=== PATIENT | male | born 1975 | race Hispanic/Latino ===

== ENCOUNTER 2018-11-24 21:49 | Emergency (ER) | payer SELFPAY ==
[2018-11-24 23:36] LABS: Basophils # (Auto) 0.1 K/mm3 (0.0-0.1); Basophils % (Auto) 0.9 % (0.0-1.8); Eosinophils # (Auto) 0.3 K/mm3 (0.0-0.4); Eosinophils % (Auto) 2.3 % (0.0-4.3); Hematocrit 46.3 % (35.5-45.6); Hemoglobin 15.8 gm/dl (11.8-15.2); Lymphocytes # (Auto) 3.3 K/mm3 (1.2-5.4); Lymphocytes % (Auto) 27.1 % (13.4-35.0); Mean Corpuscular HGB Conc 34 % (32-34); Mean Corpuscular Volume 85 fl (84-94); Monocytes # (Auto) 1.9 K/mm3 (0.0-0.8); Monocytes % (Auto) 15.7 % (0.0-7.3); Platelet Count 357 K/mm3 (140-440); Red Blood Count 5.47 M/mm3 (3.65-5.03); Red Cell Distribution Width 14.3 % (13.2-15.2)
--- NOTE | 2018-11-24 23:38 | Emergency Department Report ---
ED Male HPI - General Chief complaint: Dizziness Stated complaint: WEAKNESS DIZZINES ORANGE URINE Time Seen by Provider: 11/24/18 23:34 Source: patient Mode of arrival: Ambulatory Limitations: No Limitations - History of Present Illness Initial comments: Mr. Ramirez is a 43 yo male with hx of IDDM, CVA, DVT, DM, HTN, depression who presents with hematuria and generalized weakness. No abdominal pain. No fever. No vomiting. He does not have insurance. He does not have most of his home medications. He is taking Eliquis. -: Gradual, days(s) (2) Severity: mild Consistency: constant Worsens with: urination - Related Data Home Medications Medication Instructions Recorded Confirmed Last Taken Baclofen 10 mg PO TID 11/24/18 11/24/18 11/24/18 Eliquis 5 mg PO BID 11/24/18 11/24/18 11/24/18 Previous Rx's Medication Instructions Recorded Last Taken Type cephALEXin [Keflex] 500 mg PO Q6HR 7 Days #28 capsule 11/25/18 Unknown Rx Allergies Allergy/AdvReac Type Severity Reaction Status Date / Time No Known Allergies Allergy Unverified 11/24/18 23:02 ED Review of Systems ROS: Stated complaint: WEAKNESS DIZZINES ORANGE URINE Other details as noted in HPI Comment: All other systems reviewed and negative Constitutional: denies: fever, malaise Respiratory: denies: cough Cardiovascular: denies: chest pain ED Past Medical Hx - Past Medical History Previous Medical History?: Yes Hx Hypertension: Yes Hx CVA: Yes Hx Diabetes: Yes Hx Psychiatric Treatment: Yes (Depression) Additional medical history: DVT, EF 35%, Cardiac Valve Disease, CHRONIC PAIN - Surgical History Past Surgical History?: Yes Additional Surgical History: Blood Clot in Groin, Abdominal Hernia surgery - Social History Smoking Status: Current Every Day Smoker Substance Use Type: None - Medications Home Medications: Home Medications Medication Instructions Recorded Confirmed Last Taken Type Baclofen 10 mg PO TID 11/24/18 11/24/18 11/24/18 History Eliquis 5 mg PO BID 11/24/18 11/24/18 11/24/18 History cephALEXin [Keflex] 500 mg PO Q6HR 7 Days #28 capsule 11/25/18 Unknown Rx ED Physical Exam - General Limitations: No Limitations General appearance: alert, in no apparent distress - Head Head exam: Present: atraumatic, normocephalic - Eye Eye exam: Present: normal appearance - ENT ENT exam: Present: mucous membranes moist - Neck Neck exam: Present: normal inspection, full ROM - Respiratory Respiratory exam: Present: normal lung sounds bilaterally. Absent: respiratory distress, wheezes, rales, rhonchi - Cardiovascular Cardiovascular Exam: Present: regular rate, normal rhythm, normal heart sounds. Absent: systolic murmur, diastolic murmur, rubs, gallop - GI/Abdominal GI/Abdominal exam: Present: soft, normal bowel sounds. Absent: distended, tenderness, guarding, rebound - Rectal Rectal exam: Present: deferred - Extremities Exam Extremities exam: Present: normal inspection - Back Exam Back exam: Present: normal inspection - Neurological Exam Neurological exam: Present: alert, oriented X3 - Psychiatric Psychiatric exam: Present: normal affect, normal mood - Skin Skin exam: Present: warm, dry, intact, normal color. Absent: rash ED Course Vital Signs 11/24/18 11/24/18 11/24/18 22:25 22:56 23:34 Temperature 98.3 F 98.3 F Pulse Rate 104 H 101 H 94 H Respiratory 20 18 22 Rate Blood Pressure 131/95 131/95 O2 Sat by Pulse 95 100 95 Oximetry 11/24/18 23:45 Temperature Pulse Rate 89 Respiratory 25 H Rate Blood Pressure 129/70 O2 Sat by Pulse 96 Oximetry ED Medical Decision Making - Lab Data Result diagrams: 11/24/18 23:21 11/24/18 23:21 - Radiology Data Radiology results: report reviewed No acute process on CT abdomen and pelvis - Medical Decision Making Mr. Hummel presents with hematuria. CT abdomen and pelvis without evidence of abnormality. Prescribed cephalexin for possible UTI. Referred to outside clinic Critical care attestation.: If time is entered above; I have spent that time in minutes in the direct care of this critically ill patient, excluding procedure time. ED Disposition Clinical Impression: Hematuria Disposition: - TO HOME OR SELFCARE Is pt being admited?: No Does the pt Need Aspirin: No Condition: Stable Instructions: Acute Hematuria (ED) Prescriptions: cephALEXin [Keflex] 500 mg PO Q6HR 7 Days #28 capsule Referrals: [facility] [Outside] - 3-5 Days
[2018-11-24] MEDS ORDERED: NORCO 5/325 PO ONE (23:40)
[2018-11-24 23:48] LABS: INR 1.04 (0.87-1.13)
[2018-11-24 23:54] LABS: Alanine Aminotransferase 43 units/L (7-56); Albumin 3.7 g/dL (3.9-5); BUN/Creatinine Ratio 24; Blood Urea Nitrogen 24 mg/dL (9-20); Calcium 9.7 mg/dL (8.4-10.2); Hemolysis Index 10
--- NOTE | 2018-11-25 00:40 | Cat Scan Report ---
PROCEDURE: CT ABDOMEN PELVIS WO CON TECHNIQUE: Axial images were acquired from the lung bases through the ischial tuberosities without co ntrast. Coronal and sagittal reconstructed images were acquired. Absent IV contrast precludes adequate evaluation of viscera and vessels, including lymph nodes. HISTORY: Hematuria. COMPARISONS: None available. FINDINGS: Lower Thorax: Lungs: Bibasilar atelectasis without focal consolidation or pleural effusion. No pneumothorax. Atherosclerosis: Mild atherosclerotic changes in the aorta and coronary arteries. Pericardial effusion: No pericardial effusion. Abdomen: Liver: No calcification or adjacent inflammatory change. Gallbladder: Distended with bile, no adjacent inflammatory change. Pancreas: No focal abnormality or adjacent inflammatory change. Adrenals: Usual non-contrast appearance. Spleen: Usual non-contrast appearance. Kidneys: No discrete cortical lesion noted. No hydronephrosis. Pelvis: Ureters: Not dilated. Bowel: Non-obstructive pattern. Normal appendix. Peritoneum: No large volume free intraperitoneal fluid or air noted. Vessels: Mild atherosclerotic changes or the aorta and its branch vessels. Bladder: Distended with urine. Bones: No acute osseous abnormality. Multilevel vertebral endplate degenerative changes most prominen t in the mid thoracic spine. Paraspinal fat planes appear preserved. Miscellaneous: None. Impression: 1. No renal or ureteral calculi. No hydronephrosis. 2. Normal appearance of the appendix. No acute intra-abdominal inflammatory process. This document is electronically signed by Nick Randolph DO., November 25 2018 12:38:26 AM ET
[2018-11-25] MEDS ORDERED: KEFLEX PO ONE (00:57)
[2018-11-25 01:37] VITALS: BP 116/77
== END 2018-11-25 01:36 | disposition home or self-care (01) ==
LOC: ED 21:49
DX: R31.9 Hematuria, unspecified (principal); I10 Essential (primary) hypertension; E11.9 Type 2 diabetes mellitus without complications; F17.200 Nicotine dependence, unspecified, uncomplicated; Z86.718 Personal history of other venous thrombosis and embolism
CPT/HCPCS: 36415; 74176; 80053; 85025; 85610; 93005; 93010; 99284

== ENCOUNTER 2019-02-06 01:51 | Observation (INO) | payer OTHER ==
[2019-02-06] MEDS ORDERED: PERCOCET 5/325 PO ONE (03:08)
[2019-02-06 04:14] LABS: Basophils # (Auto) 0.1 K/mm3 (0.0-0.1); Basophils % (Auto) 0.5 % (0.0-1.8); Eosinophils # (Auto) 0.3 K/mm3 (0.0-0.4); Eosinophils % (Auto) 2.7 % (0.0-4.3); Hematocrit 45.6 % (35.5-45.6); Hemoglobin 15.1 gm/dl (11.8-15.2); Lymphocytes # (Auto) 2.7 K/mm3 (1.2-5.4); Lymphocytes % (Auto) 23.5 % (13.4-35.0); Mean Corpuscular HGB Conc 33 % (32-34); Mean Corpuscular Volume 84 fl (84-94); Monocytes # (Auto) 1.6 K/mm3 (0.0-0.8); Monocytes % (Auto) 13.8 % (0.0-7.3); Platelet Count 302 K/mm3 (140-440); Red Blood Count 5.41 M/mm3 (3.65-5.03); Red Cell Distribution Width 13.9 % (13.2-15.2)
--- NOTE | 2019-02-06 04:14 | XRay Report ---
RIGHT FOOT 3 VIEWS. INDICATION / CLINICAL INFORMATION: bilateral foot pain COMPARISON: None available. FINDINGS: BONES / JOINT(S): No acute fracture or subluxation. Underlying osteopenia. Negative for significant a rthritis. A large calcaneal spur. SOFT TISSUES: Mild soft tissue swelling. ADDITIONAL FINDINGS: None. LEFT FOOT 3 VIEWS. INDICATION / CLINICAL INFORMATION: bilateral foot pain COMPARISON: None available. FINDINGS: BONES / JOINT(S): No acute fracture or subluxation. Underlying osteopenia. Large calcaneal spur. SOFT TISSUES: Mild soft tissue swelling. ADDITIONAL FINDINGS: None. Signer Name: Joe Guevara MD Signed: 02/06/2019 4:09 AM Workstation Name: [id number]
[2019-02-06 04:30] LABS: Alanine Aminotransferase 17 units/L (7-56); Albumin 3.8 g/dL (3.9-5); BUN/Creatinine Ratio 23; Blood Urea Nitrogen 18 mg/dL (9-20); Calcium 9.2 mg/dL (8.4-10.2); Hemolysis Index 3
[2019-02-06 04:43] LABS: Uric Acid 5.4 mg/dL (3.5-7.6)
--- NOTE | 2019-02-06 04:49 | Cat Scan Report ---
CT head/brain wo con INDICATION: Generalized weakness. TECHNIQUE: All CT scans at this location are performed using the following dose modulation technique: Automated exposure control. CONTRAST: Contrast COMPARISON: None available. FINDINGS: The ventricular system is appropriate in size and configuration without midline shift. Nega tive for mass, stroke or hemorrhage. Evaluation of the paranasal sinuses demonstrate a mucous retenti on cyst at the right maxillary sinus. IMPRESSION: 1. Negative for acute abnormality. 2. Mucous retention cyst right maxillary sinus. Signer Name: Joe Guevara MD Signed: 02/06/2019 4:45 AM Workstation Name: [id number]
--- NOTE | 2019-02-06 05:54 | Emergency Department Report ---
HPI - General Chief Complaint: Extremity Injury, Lower Time Seen by Provider: 02/06/19 02:54 - HPI HPI: 43-year-old male presents to the emergency department with the complaints of bilateral foot and leg pains, weakness that has caused the patient to fall and have difficulty with ambulation. The patient had a CVA about 6 months ago that left him with some right-sided weakness and he ambulates with a walker. He has a past medical history, as well, of insulin-dependent diabetes, hypertension, previous DVT on anticoagulation, cardiomyopathy. The patient says that he is compliant with his Eliquis but otherwise does not fill all of his med ications, such as his cholesterol medication, secondary to financial issues. The patient says that he is only able to take a few steps before he gets very weak and this caused him to have a fall prior to presentation in which he fell through a baby gate. He denies hitting his head or any loss of consciousness. ED Past Medical Hx - Past Medical History Previous Medical History?: Yes Hx Hypertension: Yes Hx CVA: Yes (Right hemiparesis) Hx Diabetes: Yes Hx Psychiatric Treatment: Yes (Depression, Anxiety) Additional medical history: DVT, EF 35%, Cardiac Valve Disease, CHRONIC PAIN - Surgical History Past Surgical History?: Yes Additional Surgical History: Blood Clot in Groin, Abdominal Hernia surgery - Social History Smoking Status: Never Smoker Substance Use Type: None - Medications Home Medications: Home Medications Medication Instructions Recorded Confirmed Last Taken Type Baclofen 10 mg PO TID 11/24/18 02/06/19 11/24/18 History Eliquis 5 mg PO BID 11/24/18 02/06/19 11/24/18 History ED Review of Systems ROS: Stated complaint: BOTH FOOT PAIN Other details as noted in HPI Constitutional: weakness. denies: fever Eyes: denies: eye pain, vision change ENT: denies: ear pain, throat pain Respiratory: denies: cough, shortness of breath Cardiovascular: denies: chest pain, palpitations Gastrointestinal: denies: abdominal pain, vomiting Genitourinary: denies: dysuria, discharge Musculoskeletal: arthralgia, myalgia Skin: denies: rash, lesions Neurological: weakness. denies: numbness Physical Exam - Physical Exam Vital Signs: Vital Signs 02/06/19 02/06/19 02:00 02:18 Temperature 97.7 F 97.7 F Pulse Rate 99 H 94 H Respiratory 18 20 Rate Blood Pressure 109/46 109/56 O2 Sat by Pulse 97 97 Oximetry Physical Exam: GENERAL: The patient is well-developed well-nourished. HENT: Normocephalic. Atraumatic. Patient has moist mucous membranes. EYES: Extraocular motions are intact. Pupils equal reactive to light bilaterally. NECK: Supple. Trachea is midline. CHEST/LUNGS: Clear to auscultation. There is no respiratory distress noted. HEART/CARDIOVASCULAR: Regular. There is no tachycardia. There is no murmur. ABDOMEN: Abdomen is soft, nontender. Patient has normal bowel sounds. There is no abdominal distention. SKIN: Skin is warm and dry. NEURO: The patient is awake, alert, and oriented. The patient is cooperative. Right-sided hemiparesis. Normal speech. MUSCULOSKELETAL: Tenderness to palpation to the bilateral feet without obvious deformity. There is no evidence of acute injury. ED Course Vital Signs 02/06/19 02/06/19 02:00 02:18 Temperature 97.7 F 97.7 F Pulse Rate 99 H 94 H Respiratory 18 20 Rate Blood Pressure 109/46 109/56 O2 Sat by Pulse 97 97 Oximetry ED Medical Decision Making - Lab Data Result diagrams: 02/06/19 03:39 02/06/19 03:39 - EKG Data -: EKG Interpreted by Me EKG shows normal: sinus rhythm, axis, intervals, QRS complexes, ST-T waves Rate: normal - EKG Data When compared to previous EKG there are: previous EKG unavailable Interpretation: normal EKG - Radiology Data Radiology results: report reviewed, image reviewed interpreted by me: X-ray of the bilateral feet does not show any fracture, dislocation or any acute process. CT head/brain wo con INDICATION: Generalized weakness. TECHNIQUE: All CT scans at this location are performed using the following dose modulation technique: Automated exposure control. CONTRAST: Contrast COMPARISON: None available. FINDINGS: The ventricular system is appropriate in size and configuration without midline shift. Negative for mass, stroke or hemorrhage. Evaluation of the paranasal sinuses demonstrate a mucous retention cyst at the right maxillary sinus. IMPRESSION: 1. Negative for acute abnormality. 2. Mucous retention cyst right maxillary sinus. - Medical Decision Making This patient presents to the emergency department with the complaint of bilateral foot pain and some bilateral lower extremity weakness that caused him to have a fall. He does have a history of right-sided hemiparesis but says that he walks with a walker and has never had a fall before since having his stroke. Part of his issues may be secondary to his pain that he says radiates up his legs, but there is concern that it is some new onset weakness. CT of the head did not show any acute bleed, shift, mass, ischemia. X-rays of the bilateral feet did not show any fracture, dislocation or any acute process. Labs were mostly unremarkable. Patient does not appear stable on his feet and is c urrently unable to ambulate and therefore will be unable to complete any ADLs. He'll be admitted to the hospital for further evaluation and treatment and was accepted for admission by the hospitalist service. - Differential Diagnosis CVA, TIA, doubt, osteoarthritis, occult fracture Critical Care Time: No Critical care attestation.: If time is entered above; I have spent that time in minutes in the direct care of this critically ill patient, excluding procedure time. ED Disposition Clinical Impression: History of CVA (cerebrovascular accident), Gait difficulty, Bilateral leg pain, Weakness, Fall Disposition: DC-09 OP ADMIT IP TO THIS HOSP Is pt being admited?: Yes Condition: Fair - Assessment Assessment Interval: Baseline - Level of Consciousness 1a. Level of Consciousness: alert/keenly responsive - LOC Questions 1b. LOC Questions: answers both correctly - LOC Command 1c. LOC Commands: performs tasks correctly - Best Gaze 2. Best Gaze: normal - Visual 3. Visual: no visual loss - Facial Palsy 4. Facial Palsy: normal symmetrical movement - Motor Arm 5a. Motor Arm Left: no drift 5b. Motor Arm Right: drift - Motor Leg 6a. Motor Leg Left: drift 6b. Motor Leg Right: some gravity effort - Limb Ataxia 7. Limb Ataxia: absent - Sensory 8. Sensory: normal - Best Language 9. Best Language: no aphasia - Dysarthria 10. Dysarthria: normal - Extinction and Inattention 11. Extinction/Inattention: no abnormality - Scoring Total Score: 4 Stroke Severity: Minor Stroke
--- NOTE | 2019-02-06 10:55 | History and Physical Report ---
History of Present Illness Date of examination: 02/06/19 Date of admission: 02/06/19 06:20 Chief complaint: Bilateral lower extremity pain History of present illness: 43-year-old male with h/o CVA leftsided hameparesis, IDDM, HTN, morbidly obese, h/o DVT presents to the emergency department with the complaints of bilateral foot and leg pains. He states that these symptoms has caused the patient to fall and have difficulty with ambulation. The patient had a CVA about 6 months ago that left him with some right-sided weakness and he ambulates with a walker. The patient says that he is compliant with his Eliquis but otherwise does not fill all of his medications. The patient says that he is only able to take a few steps before he gets very weak and this caused him to have a fall prior to presentation in which he fell through a baby gate. He den ies hitting his head or any loss of consciousness. CY head in the ER showed no acute process, he was called to admit for 23h obsevation. Review of System: Constitutional: no fever, no chills, no weight loss Ears, eyes, nose, mouth and throat: no nasal congestion, no nasal discharge, no sinus pressure, no vision change, no red eye. Neck: No neck pain or rigidity. Cardiovascular: No chest pain, no orthopnea, no palpitations, no leg swelling Respiratory: No shortness of breath, no cough, no congestion, no wheezing Gastrointestinal: no abdominal pain, no nausea, no vomiting Genitourinary : no dysuria, no hematuria Musculoskeletal: no joint swelling or muscle ache Integumentary: no rash, no pruritis Neurological: Right-sided weakness/hemiparesis Endocrine: no cold or heat intolerance, no polyuria or polydipsia Hematologic/Lymphatic: no easy bruising, no easy bleeding, no gland swelling Allergic/Immunologic: no urticaria, no angioedema. Past History Past Medical History: DVT, hypertension, hyperlipidemia, stroke Past Surgical History: No surgical history Social history: denies: smoking, alcohol abuse Family history: hypertension Medications and Allergies Allergies Allergy/AdvReac Type Severity Reaction Status Date / Time No Known Allergies Allergy Verified 02/06/19 01:56 Home Medications Medication Instructions Recorded Confirmed Last Taken Type Baclofen 10 mg PO TID 11/24/18 02/06/19 11/24/18 History Eliquis 5 mg PO BID 11/24/18 02/06/19 11/24/18 History Exam - Physical Exam Narrative exam: GENERAL: well-developed obese white male lying on bed appeared to be in no discomfort. HEENT: Normocephalic. Atraumatic. No conjunctival congestion or icterus. Patient has moist mucous membranes. NECK: Supple. Trachea midline. CHEST/LUNGS: Clear to auscultated bilaterally, breathing nonlabored. No wheezes crackles or rhonchi. HEART/CARDIOVASCULAR: Regular in rate and rhythm. S1 and S2 positive. ABDOMEN: Abdomen is soft, nontender. Patient has normal bowel sounds. SKIN: There is no rash. Warm and dry. NEURO: Right-sided weakness. Follows command. MUSCULOSKELETAL: No joint effusion or tenderness. EXTRIMITY: No edema, no cyanosis or clubbing. PSYCH: Cooperative. - Constitutional Vitals: Temp Pulse Resp BP Pulse Ox 97.8 F 60 20 98/65 97 02/06/19 08:45 02/06/19 08:45 02/06/19 08:45 02/06/19 08:45 02/06/19 08:45 Results - Labs CBC & Chem 7: 02/06/19 03:39 02/06/19 03:39 Labs: Abnormal lab results 02/06/19 02/06/19 Range/Units 03:39 03:39 WBC 11.7 H (4.5-11.0) K/mm3 RBC 5.41 H (3.65-5.03) M/mm3 Calloway % (Auto) 13.8 H (0.0-7.3) % Calloway # 1.6 H (0.0-0.8) K/mm3 Glucose 121 H (75-100) mg/dL Total Creatine Kinase 305 H (55-170) units/L Albumin 3.8 L (3.9-5) g/dL Assessment and Plan Bilateral lower extremity pain, likely due to neuropathy - r/o acute DVT History of remote CVA with right-sided hyperemesis Morbid obesity Chronic debility from CVA History of DVT on eliquis Hypertension, BP labile Hyperlipidemia DM on insulin Leukocytosis, could be reactive - Admit the patient to the MedSurg - We'll resume home meds other with aspirin and statin - Start on Neurontin, cardiac/consistent carb diet - SSI and fingerstcks qachs - Ordered lower extremity venous Doppler as patient is noncompliant with his eliquis - Ordered PT OT eval, high risk case manager consulted for placement - DVT prophylaxis with Lovenox Disposition: Pending clinical course and PT OT eval, follow venous doppler, Monitor BP CT head: 1. Negative for acute abnormality. 2. Mucous retention cyst right maxillary sinus.
[2019-02-06] MEDS ORDERED: NON-FORMULARY (Eliquis 5 MG) PO SCH (11:00)
[2019-02-06] MEDS: ELIQUIS PO SCH ×2 (13:18→22:11)
[2019-02-06] MEDS: NEURONTIN PO SCH ×2 (13:18→22:11)
[2019-02-06] MEDS: HALFPRIN EC PO SCH (13:18)
[2019-02-06] MEDS: LIORESAL PO SCH ×2 (13:18→22:11)
[2019-02-06] MEDS ORDERED: NON-FORMULARY (Baclofen 10 MG) PO SCH (14:00)
[2019-02-06] MEDS: HumuLIN R SUB-Q SCH ×2 (17:42→22:12)
--- NOTE | 2019-02-06 19:01 | Vascular Lab Report ---
DUPLEX DOPPLER BILATERAL LOWER EXTREMITY VEINS INDICATION: Leg pain. Gait difficulty. FINDINGS: There is no thrombus within the deep veins of either lower extremity from the common femoral to the c joseph veins. There is normal compression and augmentation on spectral analysis. IMPRESSION: No sonographic evidence for DVT in either lower extremity. Signer Name: Chaitanya Salas MD Signed: 02/06/2019 6:57 PM Workstation Name: [id number]
[2019-02-07] MEDS: NEURONTIN PO SCH ×2 (06:42→13:19)
[2019-02-07] MEDS: LIORESAL PO SCH ×2 (06:42→13:19)
[2019-02-07] MEDS: HumuLIN R SUB-Q SCH ×2 (11:50→12:35)
[2019-02-07] MEDS: HALFPRIN EC PO SCH (11:50)
[2019-02-07] MEDS: ELIQUIS PO SCH (11:50)
--- NOTE | 2019-02-07 13:12 | Discharge Summary ---
Providers - Providers Date of Admission: 02/06/19 06:20 Date of discharge: 02/07/19 Attending physician: KELVIN HERNANDEZ 02/06/19 10:56 Consult to Case Management [CONS] Routine Services Needed at Discharge: Marine Scientist Notified:: for case management dept Physical Therapy Evaluation and Treat [CONS] Routine Comment: Reason For Exam: placement 02/06/19 17:04 Occupational Therapy Evaluate and Treat [CONS] Routine Comment: Reason For Exam: lt side weakness [facility] Condition: Fair Pertinent studies: CT head: 1. Negative for acute abnormality. 2. Mucous retention cyst right maxillary sinus. Hospital course: 43-year-old male with h/o CVA leftsided hameparesis, IDDM, HTN, morbidly obese, h/o DVT presents to the emergency department with the complaints of bilateral foot and leg pains. He states that these symptoms has caused the patient to fall and have difficulty with ambulation. The patient had a CVA about 6 months ago that left him with some right-sided weakness and he ambulates with a walker. The patient says that he is compliant with his Eliquis but otherwise does not fill all of his medications. The patient says that he is only able to take a few steps before he gets very weak and this caused him to have a fall prior to presentation in which he fell through a baby gate. He denies hitting his head or any loss of consciousness. CY head in the ER showed no acute process, he was called to admit for 23h obsevation. - Admitted the patient to the [facility] - Resumed home meds with eliquis and statin - Started on Neurontin, cardiac/consistent carb diet - Placed on SSI and fingerstcks qachs to manage BG - Ordered lower extremity venous Doppler as patient is noncompliant with his eliquis -was negative - Ordered PT OT eval - recommended outpt PT/OT - Patient was then discharged home with outpt PT/OT and HH in stable condition. Discharge diagnosis and management: Bilateral lower extremity pain, likely due to neuropathy - ruled out acute DVT History of remote CVA with right-sided hyperemesis - outpt PT/OT Morbid obesity, counselled on diet Chronic debility from CVA, outpt PT/OT History of DVT on eliquis, resumed Hypertension, BP labile Hyperlipidemia, cont statin DM type 2 not on insulin - BG stable now with diet only Leukocytosis, could be reactive, no sign of infection Disposition: Home with outpatient PT OT. Disposition: DC/[place]-[address] [facility] Time spent for discharge: 34 minutes Core Measure Documentation - Palliative Care Palliative Care/ Comfort Measures: Not Applicable - Core Measures Any of the following diagnoses?: none Exam - Physical Exam Narrative exam: GENERAL: well-developed obese white male lying on bed appeared to be in no discomfort. HEENT: Normocephalic. Atraumatic. No conjunctival congestion or icterus. Patient has moist mucous membranes. NECK: Supple. Trachea midline. CHEST/LUNGS: Clear to auscultated bilaterally, breathing nonlabored. No wheezes crackles or rhonchi. HEART/CARDIOVASCULAR: Regular in rate and rhythm. S1 and S2 positive. ABDOMEN: Abdomen is soft, nontender. Patient has normal bowel sounds. SKIN: There is no rash. Warm and dry. NEURO: Right-sided weakness. Follows command. MUSCULOSKELETAL: No joint effusion or tenderness. EXTRIMITY: No edema, no cyanosis or clubbing. PSYCH: Cooperative. - Constitutional Vitals: Temp Pulse Resp BP Pulse Ox 98.8 F 64 20 95/52 95 02/07/19 05:10 02/07/19 05:10 02/07/19 05:10 02/07/19 05:10 02/07/19 05:10 Plan Activity: fall precautions Weight Bearing Status: Non-Weight Bearing Diet: low fat, low salt, diabetic Special Instructions: restrict fluid intake to (1.2L perday), record daily weights, record daily BP diary, record blood sugar diary Follow up with: RIYA MATTHEWS MD [Primary Care Provider] - 3-5 Days RENETTA OJEDA MD [Staff Physician] - 7 Days JOLIE JIMENEZ MD [Staff Physician] - 7 Days Prescriptions: AtorvaSTATin [Lipitor] 40 mg PO QHS #30 tablet Baclofen 10 mg PO TID #30 Eliquis 5 mg PO BID #60 Gabapentin [Neurontin] 100 mg PO Q8HR #60 capsule Other Discharge Orders: Occupational Therapy (Amb) Location: None Selected Physicial Therapy (Amb) Location: None Selected Glucometer (Amb) Location: None Selected Glucometer supplies[Amb] Location: None Selected
[2019-02-07 13:21] VITALS: BP 106/63
== END 2019-02-07 15:54 | disposition home health service (06) ==
LOC: ED 01:51 → INTOOBSV 06:20 → 3A 06:20
PROVIDERS: ADMIT Internal Medicine; ATTEND Internal Medicine
DX: M79.605 Pain in left leg (principal); M79.604 Pain in right leg; E66.01 Morbid (severe) obesity due to excess calories; I10 Essential (primary) hypertension; E78.5 Hyperlipidemia, unspecified; E11.9 Type 2 diabetes mellitus without complications; D72.829 Elevated white blood cell count, unspecified; R53.81 Other malaise; Z79.4 Long term (current) use of insulin; Z86.718 Personal history of other venous thrombosis and embolism; W19.XXXA Unspecified fall, initial encounter
CPT/HCPCS: 36415; 70450; 73630; 80053; 82550; 82962; 84443; 84484; 84550; 85025; 87116; 93005; 93010; 93970; 96372; 97162; 99284; 99406; A9270; G0378; J1815